=== PATIENT | male | born 1980 | race Caucasian/White ===

== ENCOUNTER 2021-10-24 07:32 | Day surgery (SDC) | payer OTHER ==
[~2021-10-24] VITALS: Ht 185.4 cm; Wt 75.5 kg
[~2021-10-24 07:32] MED LIST: FLUT1DIS2 INH; IBUP600 PO
--- NOTE | 2021-10-24 08:23 | NUR ---
10/24/21 0823 BRITTNEY CHUN 3 ATTEMPTS AT IV. FIRST ATTMEPT AT IV BY MA IN R HAND INFILTRATED. SECODN ATTEMPT BY MA IN R FOREARM INFILTRATED. THIRD ATTEMPT BY RN IN L HAND SUCCESSFUL.
== END 2021-10-24 09:35 | disposition home or self-care (01) ==
LOC: ORSCSDS 07:32
PROVIDERS: Surgery
PROC: 0DJD8ZZ Inspection of Lower Intestinal Tract, Via Natural or Artificial Opening Endoscopic (ICD-10-PCS; principal; 2021-10-24 08:45)
DX: K62.5 Hemorrhage of anus and rectum (principal); K64.8 Other hemorrhoids; J44.9 Chronic obstructive pulmonary disease, unspecified; F17.210 Nicotine dependence, cigarettes, uncomplicated; Z79.899 Other long term (current) drug therapy
CPT/HCPCS: J2250; J2704; J7120